=== PATIENT | female | born 1985 | race Caucasian/White ===

== ENCOUNTER 2019-02-06 21:13 | Observation (INO) | payer OTHER, SELFPAY ==
[2019-02-06] MEDS ORDERED: Ondansetron PF 4 MG/2 ML Vial ONE (21:30)
[2019-02-06] MEDS ORDERED: Morphine 4 MG/ML VIAL ONE ×2 (21:30→23:37)
[2019-02-06] MEDS ORDERED: Ketorolac Tromethamine 30 MG/ML VIAL ONE (21:30)
[2019-02-06 22:02] LABS: #Lymphocytes 0.8 thou/uL (1.20-3.40); #Monocytes 0.6 thou/uL (0.11-0.59); #Neutrophils 14.6 thou/uL (1.40-6.50); %Basophils 0.2 % (0.0-1.0); %Eosinophils 0.2 % (0.0-10.0); %Monocytes 3.5 % (0.0-10.0); %Neutrophils 91.1 % (42.0-75.0); Hemoglobin 14.2 g/dL (12.0-16.0); Mean Corpuscular HGB CONC 33.6 g/dL (32.0-36.0); Mean Corpuscular Hemoglobin 30.1 pg (27.0-31.0); Mean Corpuscular Volume 89.6 fL (78.0-98.0); Platelet Count 227 thou/uL (130-400); RBC Distribution Width 11.2 % (11.5-14.5); Red Blood Cell (RBC) Count 4.73 mill/uL (4.20-5.40)
[2019-02-06 22:11] LABS: BHCG - Serum Negative (NEGATIVE); Pregs Control Background? CLEAR/WHITE (CLR/WHITE); Pregs Control Bar Appear? YES (CONTROL BAR)
[2019-02-06 22:32] LABS: ALT (SGPT) 9 U/L (8-55); AST (SGOT) 13 U/L (5-34); Albumin 4.7 g/dL (3.5-5.0); Alkaline Phosphatase 83 U/L (40-110); Anion Gap 15 mmol/L (10-20); BUN (Urea Nitrogen) 13 mg/dL (7.0-18.7); Bilirubin, Total 0.6 mg/dL (0.2-1.2); Calc. Creatinine Clearance 0 mL/min (70-130); Calcium 9.9 mg/dL (7.8-10.44); Carbon Dioxide 24 mmol/L (22-29); Chloride 103 mmol/L (98-107); Estimated GFR-MDRD 62; Globulin 3.1 g/dL (2.4-3.5); Glucose 112 mg/dL (70-105); Lipase 17 U/L (8-78); Potassium 4.2 mmol/L (3.5-5.1); Protein, Total 7.8 g/dL (6.0-8.3); Sodium 138 mmol/L (136-145)
--- NOTE | 2019-02-06 23:22 | CT ---
CT Stone Protocol HISTORY: Bilateral flank pain intermittently x1 week. COMPARISON: None. FINDINGS: The lung bases are clear of any infiltrative process. Some linear atelectasis is seen. The liver, spleen, pancreas and gallbladder regions appear unremarkable given the limitations of a no ncontrast study. Right and left adrenal glands are normal in appearance right and left kidneys are normal in size a pu nctate lower pole left renal calculus is present. There is also left-sided hydronephrosis and hydroureter related to a proximal left ureteral calculus measuring 5 to 6 mm in size located at the L 3-4 level. There is no significant pelvic lymphadenopathy are size no significant periaortic or mesenteric adenopathy. CT of pelvis performed with contrast enhancement some trace free fluid is seen. There is no evidence of adenopathy or mass. The appendix appears unremarkable. IMPRESSION: 1. Approximately 5 mm proximal left ureteral calculus located at the L3-4 level associated with mild left-sided hydronephrosis and hydroureter. In addition there is a tiny punctate lower pole left renal calculus seen.
[2019-02-07 00:01] LABS: Bacteria/HPF 2+ HPF (None Seen); Bilirubin Negative (Negative); Blood, Urine 1+ (Negative); Calcium Oxalate Crystals Rare HPF (None Seen); Clarity Turbid (Clear); Glucose, Urine (Dipstick) Normal (Negative); Leukocyte 500 Leu/uL (Negative); Mucous/LPF 2+ LPF (<2+); Nitrite 2+ (Negative); Protein, Urine (Dipstick) 20 mg/dL (Neg-Trace); RBC/HPF 21-50 HPF (0-3); Urobilinogen Normal mg/dL (Less than 2); WBC/HPF Greater than 50 HPF (0-3)
[2019-02-07] MEDS ORDERED: cefTRIAXone\\ROCEPHIN 1 GM VIAL ONE (00:29)
[2019-02-07] MEDS ORDERED: Ondansetron PF 4 MG/2 ML Vial IVP PRN ×2 (01:18→01:56)
[2019-02-07] MEDS ORDERED: Ondansetron ODT 4 MG TAB PO PRN (01:18)
[2019-02-07] MEDS ORDERED: Acetaminophen 500 MG TAB ONE (01:41)
[2019-02-07] MEDS ORDERED: Morphine 4 MG/ML VIAL ONE (01:41)
[2019-02-07] MEDS: Sodium Chloride 0.9% 1,000 ML IV SCH ×3 (01:41→22:06)
[2019-02-07] MEDS ORDERED: Ondansetron ODT 4 MG TAB SL PRN (01:56)
[2019-02-07] MEDS ORDERED: Lactated Ringer's 1,000 ML IV SCH (01:56)
[2019-02-07] MEDS ORDERED: Morphine 2 MG/ML SYRINGE SLOW IVP PRN (01:57)
[2019-02-07] MEDS ORDERED: Ketorolac Tromethamine 30 MG/ML VIAL IVP PRN (01:58)
[2019-02-07 02:08] VITALS: BMI 21.1
--- NOTE | 2019-02-07 02:32 | HP ---
PRIMARY CARE PROVIDER: [facility]. CHIEF COMPLAINT: Left flank pain. HISTORY OF PRESENT ILLNESS: This is a 33-year-old female, who presented to [facility] Emergency Department complaining of left flank pain with nausea and abdominal discomfort over the last 48 hours. The patient admits to history of kidney stones x5 with previous presentation similar to the current admission. The patient admits to dark blood-tinged urine, general body aches, and decreased oral intake. The patient denies taking any outpatient antibiotics or other oemu-stj-vqirzul medications to relieve her symptoms. The patient denies any other chronic medical conditions or chronic medication use. The patient denied any recent travel history, recent procedures, instrumentation, or surgical procedures. In the emergency room, the patient underwent general evaluation including CT imaging of the abdomen and pelvis showing a proximal left ureteral calculus at 5 mm with associated mild left-sided hydronephrosis and hydroureter. The patient received IV Rocephin in addition to Toradol and morphine sulfate and intravenous normal saline. PAST MEDICAL HISTORY: Renal lithiasis with spontaneous passage of the stones. PAST SURGICAL HISTORY: Status post section x1. PAST PSYCHIATRIC HISTORY: Anxiety/depression. CURRENT MEDICATIONS: Reviewed and negative. ALLERGIES: NO KNOWN DRUG ALLERGIES. FAMILY HISTORY: No inheritable diseases per patient report. SOCIAL HISTORY: The patient resides in [place], [place]. Smokes up to half a pack of cigarettes daily. No alcohol or illicit drug use. Functional of all activities of daily living. REVIEW OF SYSTEMS: CONSTITUTIONAL: Negative for weight loss or gain, ability to conduct usual activities. SKIN: Negative for rash, itching. EYES: Negative for double vision, pain. ENT/MOUTH: Negative for nose bleeding, neck stiffness, pain, tenderness. CARDIOVASCULAR: Negative for palpitations, dyspnea on exertion, orthopnea. RESPIRATORY: Negative for shortness of breath, wheezing, cough, hemoptysis, fever or night sweats. GASTROINTESTINAL: Negative for poor appetite, abdominal pain, heartburn, nausea, vomiting, constipation, or diarrhea. GENITOURINARY: Negative for urgency, frequency, dysuria, nocturia. MUSCULOSKELETAL: Negative for pain, swelling. NEUROLOGIC/PSYCHIATRIC: Negative for anxiety, depression. ALLERGY/IMMUNOLOGIC: Negative for skin rash, bleeding tendency. Otherwise, negative except as stated per HPI. PHYSICAL EXAMINATION: VITAL SIGNS: On admission, blood pressure 113/57, pulse 89, respiratory rate 18, temperature 97.9 degrees Fahrenheit, and O2 saturation 93% on room air. GENERAL APPEARANCE: This is a 33-year-old female, ill appearing, responsive, in mild distress. HEENT: Pupils are equal, round, reactive to light and accommodation. Extraocular muscles are intact. No scleral icterus. No conjunctival injection. Nares patent. OP is clear. Oral mucosa is dry appearing. NECK: Supple. No cervical adenopathy. No thyromegaly. No carotid bruits. No JVD appreciated. Cervical spine with full active and passive range of motion. No meningeal signs noted. CHEST: Lungs are clear to auscultation bilaterally. CARDIOVASCULAR: S1, S2 with tachycardia. No murmur, rub, or gallop appreciated. ABDOMEN: Rounded, soft, nontender, and nondistended. Mild tenderness in the left flank region with positive CVA tenderness bilaterally, left greater than right. EXTREMITIES: Warm and dry with fair turgor. No clubbing, cyanosis, or asymmetric edema appreciated. Pulses palpable distally at the dorsalis pedis, posterior tibial, and popliteal arteries bilaterally. Capillary refill less than 2 seconds. NEUROLOGIC: Cranial nerves 2 through 12 are grossly intact. No focal or lateralizing signs appreciated. PERTINENT LABORATORY AND X-RAY FINDINGS: Basic metabolic profile within normal limits. LFTs within normal limits. Serum beta HCG negative. Lipase 17. CBC showed a white blood cell count of 16, hemoglobin 14, hematocrit 42, platelet count 227 with 91% neutrophils. Urinalysis showed a specific gravity of 1.023, positive blood, positive nitrite, positive leukocyte esterase with 21 to 50 rbc's per high-power field and greater than 50 to cxh-azfxdwnb-cd-count to count wbc's per high-power field. CT of the abdomen and pelvis dated 02/06/2019, showed a proximal left ureteral calculus, 5 mm in diameter with associated mild left-sided hydronephrosis and hydroureter. ASSESSMENT AND PLAN: 1. Left ureterolithiasis. The patient will be observed on the medical floor. We will continue intravenous normal saline at 125 mL/hour. Pain control with Toradol and morphine sulfate intravenously. Consult Urology Service in the a.m. for any further recommendations. Consider Flomax. Urine culture pending. 2. Urinary tract infection secondary to #1. Continue Rocephin 2 g IV q.24 hours. Urine culture pending. 3. Nausea and vomiting. Continue supportive management with IV fluids as outlined previously. Zofran 4 mg IV q.6 hours p.r.n. Clear liquids as tolerated. 4. Neutrophilic leukocytosis secondary to #1. Continue serial CBC monitoring. Anticipate improvement in the next 24 hours. 5. Prophylaxis. SCDs while in bed. Pepcid 20 mg p.o. b.i.d.. CODE STATUS: Full. Surrogate medical decision maker is the patient's mother. Job ID: [id number]
[2019-02-07] MEDS: Morphine 2 MG/ML SYRINGE SLOW IVP PRN ×3 (03:15→13:32)
[2019-02-07] MEDS: Ketorolac Tromethamine 30 MG/ML VIAL IVP SCH ×4 (05:27→23:42)
[2019-02-07 06:50] LABS: Band 7 % (5-11); Hemoglobin 11.1 g/dL (12.0-16.0); Lymphocytes 3 % (21-51); MDiff Complete? YES; Mean Corpuscular Hemoglobin 30.5 pg (27.0-31.0); Mean Corpuscular Volume 89.7 fL (78.0-98.0); Mean Platelet Volume 8.3 fL (7.4-10.4); Monocytes 1 % (0-10); Neutrophil 89 % (42-75); Platelet Count 157 thou/uL (130-400); Platelet Morphology Comment Appears Adequate; RBC Distribution Width 11.1 % (11.5-14.5); RBC Morphology Normal; Red Blood Cell (RBC) Count 3.63 mill/uL (4.20-5.40); White Blood Cell (WBC) Count 11.4 thou/uL (4.8-10.8)
[2019-02-07 06:54] LABS: Anion Gap 12 mmol/L (10-20); BUN (Urea Nitrogen) 12 mg/dL (7.0-18.7); Calc. Creatinine Clearance 88 mL/min (70-130); Carbon Dioxide 20 mmol/L (22-29); Chloride 110 mmol/L (98-107); Estimated GFR-MDRD 85; Glucose 110 mg/dL (70-105); Potassium 3.5 mmol/L (3.5-5.1); Sodium 138 mmol/L (136-145)
[2019-02-07] MEDS: cefTRIAXone\\ROCEPHIN 2 GM in Sodium Chloride 0.9% 100 ML IVPB SCH (08:33)
[2019-02-07] MEDS: Famotidine 20 MG TAB PO SCH ×2 (08:33→20:53)
[2019-02-07] MEDS: Acetaminophen 500 MG TAB PO PRN ×2 (11:41→20:54)
[2019-02-07] MEDS ORDERED: ePHEDrine/0.9% NaCl/PF SYRINGE 50 mg/10 ml ONE (12:54)
[2019-02-07] MEDS ORDERED: Lidocaine 1% PF 5 ML VIAL ONE (12:54)
[2019-02-07] MEDS ORDERED: Dexamethasone 20 MG/5 ML VIAL ONE (12:54)
[2019-02-07] MEDS ORDERED: PROPOFOL 200 MG/20 ML VIAL ONE (12:54)
[2019-02-07] MEDS ORDERED: Ondansetron PF 4 MG/2 ML Vial ONE (12:54)
[2019-02-07] MEDS ORDERED: PHENYLEPHRINE-NS 100 MCG/ML 10 ML SYRINGE ONE (12:54)
[2019-02-07] MEDS ORDERED: Ketorolac Tromethamine 30 MG/ML VIAL ONE (12:54)
--- NOTE | 2019-02-07 13:26 | RAD ---
XR Abdomen 1 View/KUB History: Kidney stone Comparison: CT examination prior day Findings: Similar location of the left ureteral calculus between the L3 and L4 transverse processes. Punctate lower left renal collecting system calculus is not well seen. No acute osseous abnormality. Impression: Unchanged left ureteral calculus.
--- NOTE | 2019-02-07 13:58 | CON ---
DATE OF CONSULTATION: 02/07/2019 REASON FOR CONSULTATION: 1. Left ureteral calculus. 2. Apparent urosepsis meaning sepsis. HISTORY OF PRESENT ILLNESS: Ms. 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 She has never had a febrile episode like she has experienced over the last 24 hours. The patient presents with high fever and left-sided flank pain. She presented via the Emergency Department, underwent CT scanning of the abdomen and pelvis, which demonstrated the presence of a 5.5 mm calculus in the left mid ureter overlying the psoas muscle. The patient has continued to have signs and symptoms of sepsis with elevated white blood count, tachycardia, and fever to 101.5. The patient is uncomfortable, who has had nausea and vomiting as well. ALLERGIES: NO KNOWN DRUG ALLERGIES. MEDICATIONS: Outpatient medication list, none. GYNECOLOGIC HISTORY: The patient is 1, para 1, by . SOCIAL HISTORY: The patient is a current half pack per day cigarette smoker. She does drink alcohol, usually of two beers on a weekend night. She is from her . Has one child, who ordinarily is at home, but is with her estranged at the present time. The patient resides with her boyfriend. She works as a [employer] manager. PAST MEDICAL HISTORY: Kidney stones with five previous events, none of which required surgical intervention, and all which passed without requirement for intervention. PAST SURGICAL HISTORY: The only previous surgery was a section for the delivery of her only child. FAMILY MEDICAL HISTORY: Noncontributory. REVIEW OF SYSTEMS: CONSTITUTIONAL: The patient reports constitutional symptoms of fever and chills. PULMONARY: Negative. CARDIAC: Notable for rapid heart rate. GASTROINTESTINAL: Positive for nausea and vomiting. GENITOURINARY: The patient reports left-sided flank pain symptoms consistent with passage of kidney stone. This is typical for her symptomatology. MUSCULOSKELETAL: Negative. SKIN AND INTEGUMENTARY SYSTEM: Negative. HEMATOLOGIC: Negative history. Review of systems, otherwise negative x12 systems. PHYSICAL EXAMINATION: VITAL SIGNS: Temperature is 101.5 degrees F. Pulse rate is 111, respiratory rate is 16, and blood pressure is 105/56. HEAD, EYES, EARS, NOSE, AND THROAT: Extraocular movements are intact. Sclerae anicteric. Oropharynx is clear. NECK: Supple. LUNGS: Clear to auscultation bilaterally. CARDIAC: Regular rate and rhythm without murmur, rub, or gallop. ABDOMEN: Soft and nontender anteriorly. The patient has undergone a previous section. BACK: There is moderate left-sided costovertebral angle tenderness. She has no complementary right-sided costovertebral angle tenderness. PELVIC: Deferred to the operative suite. EXTREMITIES: Appear within normal limits. There is no clubbing, cyanosis, or edema. NEUROLOGIC: The patient appears to be able to move all 4 extremities against gravity. Gait was not assessed. The patient was examined in her hospital bed. LABORATORY STUDIES: This morning, white count is down to 11.4 from a very elevated 16,000 yesterday with a left shift of 91.1%. Left shift is improved to 89% this morning. Serum chemistry showed the patient's creatinine was 1.04 yesterday, now down to 0.79. Blood urea nitrogen 13 yesterday, down to 12 today. Glucose remains borderline elevated at 110 on IV fluid. Urinalysis showed 500 units of leukocyte esterase, 21 to 50 red cells per high-power field and greater than 50 white cells per high-power field. Microscopic analysis showed squamous epithelial cells 4 to 6, calcium oxalate crystals seen rarely. Urine bacteria 2+ and urine mucus at 2+. Urine gravity was 1.023 consistent with dehydration. ASSESSMENT AND PLAN: 1. Left-sided mid ureteral calculus with septic presentation. The patient has been on IV antibiotics and resuscitation fluids and appears to be improving somewhat, though she remains febrile with an elevated white count. The patient is receiving appropriate resuscitation at the present time. Discussed with the patient risks and benefits. At the present time, the stone would appear to probably take several weeks to pass on its own. I am recommending a KUB imaging studies be obtained for following the stone longer-term. In addition, I recommend the patient remain on antibiotic coverage and IV fluid for now. I think she probably should proceed to the operating room for cystoscopy and left-sided stent placement. The stone would ordinarily be of a size that could pass on its own. I think if the patient was stented, she would be suitable for discharge home as soon as her fever clears and her microorganism antibiotic sensitivities known. 2. Recurrent kidney stone. Formally, the patient needs outpatient evaluation for a kidney stone risk factors, which can be performed in my office. Over 70 minutes of initial consultation care and coordination of care time was spent in evaluation and assessment of this patient today. Job ID: [id number]
[2019-02-07] MEDS ORDERED: Fentanyl 100 MCG/2 ML VIAL ONE (15:55)
[2019-02-07] MEDS ORDERED: Iothalamate Meglumine 60% 50 ML VIAL FS ONE (16:05)
[2019-02-07] MEDS ORDERED: Ondansetron HCl/PF 4 MG/2 ML Vial IVP PRN (16:06)
[2019-02-07] MEDS ORDERED: Promethazine HCl 25 MG/ML VIAL IM PRN (16:06)
[2019-02-07] MEDS ORDERED: Promethazine HCl 25 MG/ML VIAL SLOW IVP PRN (16:06)
[2019-02-07] MEDS ORDERED: B & O ONE (16:45)
--- NOTE | 2019-02-07 17:04 | RAD ---
RETROGRADE PYELOGRAM: HISTORY: Ureteral stone. FINDINGS: Two images are presented for interpretation, showing placement of a left ureteral stent. IMPRESSION: Placement of left ureteral stent. The collecting system is nondilated. POS: GERALDINE
[2019-02-07] MEDS: Trospium 20 MG TAB PO SCH (20:53)
[2019-02-07] MEDS: Phenazopyridine HCl 97.5 MG TABLET PO SCH (20:54)
[2019-02-07] MEDS: HYDROcodone/Acetaminophen 5/325 mg Tablet PO PRN (22:05)
[2019-02-08] MEDS: Sodium Chloride 0.9% 1,000 ML IV SCH ×2 (01:14→07:51)
--- NOTE | 2019-02-08 01:58 | OP ---
DATE OF PROCEDURE: 02/07/2019 PREOPERATIVE DIAGNOSES: 1. Left ureteral calculus, N20.1. 2. Sepsis. POSTOPERATIVE DIAGNOSES: 1. Left ureteral calculus, N20.1. 2. Sepsis. OPERATIVE PROCEDURE: 1. Cystourethroscopy with left ureteral stent placement, 32287. 2. Cystourethroscopy with left-sided retrograde pyelography, 37554. STITCHER AROUND SURGEON: None. 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 The patient developed acute onset left-sided flank pain with associated nausea, vomiting, and fever, presented to the emergency department today where she was admitted by Dr. Duenas, who placed her on IV antibiotics. I evaluated the patient on the floor and based on her presentation and followup KUB imaging study demonstrating a radiopaque calculus, we decided to proceed to the operating room for cystoscopy and stent placement today. The patient had received appropriate antibiotic coverage and fluid resuscitation prior to proceeding to the operating room. DESCRIPTION OF PROCEDURE: The patient was appropriately identified and informed written consent was obtained in the preoperative holding area. The patient and I discussed risks and benefits of the procedure. The patient agreed to proceed. Signed informed consent. The patient was then taken to the operative suite, reidentified, and placed in the supine position on a cysto-fluorographic table. General anesthesia was established. Following appropriate time-out, the patient was repositioned in supine lithotomy position, prepped and draped in usual sterile fashion. Cystoscopic evaluation was performed using a 22-[place] cystoscope sheath introduced using an obturator. The patient's bladder was free of any evidence of stone. There was no evidence of inflammation around the left ureteric orifice to suggest any degree of stone passage. There was no efflux observed from left ureteric orifice. Rincon-endoscopic evaluation of the patient's bladder found no evidence of stone, tumor, or other lesion. There was a small amount of purulent debris observed in the patient's bladder suggesting some degree of passage around the calculus. We accessed the patient's left ureter using a 0.035 angled Glidewire and a 5-[place] Pollack stent. This was advanced above the level of the calculus and fluid aspirated from the patient's renal pelvis. This had a minimally turbid appearance to it suggestive of possible active infection or pyuria. This was sent for culture. I then performed retrograde pyelography to identify the patient's collecting system. Then, we readvanced the Glidewire in the patient's renal pelvis. Then, advanced a 4.5-[place]ese x 28 cm double-J ACMI ureteral stent into position. Obtaining good coil in the patient's upper collecting system. We removed the string. This stent obtained a good coil in the patient's bladder. We drained the patient's bladder and then placed a belladonna and opioid 16A 60 mg suppository per rectum. The patient tolerated the procedure well. She was returned to the full supine lithotomy position. LMA airway was then removed. The patient was then transferred to the [facility], breathing on her own and subsequently transported the postoperative recovery area in good condition. Estimated blood loss 0 mL. Specimens, urine from the left UPJ and renal pelvis on the left for culture. No stones were recovered. The patient has been febrile today and has the appearance of sepsis and there was purulent material observed in the patient's bladder, so we did not perform ureteroscopy. The patient tolerated the procedure well and vital signs were stable postoperatively. COMPLICATIONS: None. Job ID: [id number]
[2019-02-08] MEDS: Ketorolac Tromethamine 30 MG/ML VIAL IVP SCH ×2 (05:01→10:54)
[2019-02-08 05:16] LABS: Anion Gap 11 mmol/L (10-20); BUN (Urea Nitrogen) 11 mg/dL (7.0-18.7); Calc. Creatinine Clearance 93 mL/min (70-130); Carbon Dioxide 20 mmol/L (22-29); Chloride 111 mmol/L (98-107); Estimated GFR-MDRD 90; Glucose 142 mg/dL (70-105); Potassium 3.7 mmol/L (3.5-5.1); Sodium 138 mmol/L (136-145)
[2019-02-08 05:22] LABS: #Lymphocytes 0.7 thou/uL (1.20-3.40); #Monocytes 0.2 thou/uL (0.11-0.59); #Neutrophils 6.8 thou/uL (1.40-6.50); %Basophils 0.1 % (0.0-1.0); %Eosinophils 0.2 % (0.0-10.0); %Lymphocytes 8.8 % (21.0-51.0); %Monocytes 2.9 % (0.0-10.0); %Neutrophils 88.1 % (42.0-75.0); Hemoglobin 10.6 g/dL (12.0-16.0); Mean Corpuscular HGB CONC 33.4 g/dL (32.0-36.0); Mean Corpuscular Hemoglobin 30.5 pg (27.0-31.0); Mean Corpuscular Volume 91.1 fL (78.0-98.0); Mean Platelet Volume 8.9 fL (7.4-10.4); Platelet Count 111 thou/uL (130-400); Platelet Morphology Comment Appears Decreased; RBC Distribution Width 11.2 % (11.5-14.5); Red Blood Cell (RBC) Count 3.47 mill/uL (4.20-5.40); White Blood Cell (WBC) Count 7.7 thou/uL (4.8-10.8)
[2019-02-08] MEDS: Phenazopyridine HCl 97.5 MG TABLET PO SCH (08:29)
[2019-02-08] MEDS: Trospium 20 MG TAB PO SCH (08:29)
[2019-02-08] MEDS: Famotidine 20 MG TAB PO SCH (08:29)
[2019-02-08] MEDS: HYDROcodone/Acetaminophen 5/325 mg Tablet PO PRN (08:30)
[2019-02-08] MEDS: cefTRIAXone\\ROCEPHIN 2 GM in Sodium Chloride 0.9% 100 ML IVPB SCH (09:38)
[2019-02-08 11:58] VITALS: BP 101/61; TEMP 98.3
--- NOTE | 2019-02-08 21:20 | CON ---
DATE OF CONSULTATION: INITIAL REASON FOR CONSULTATION AND EVALUATION: 1. Left ureteral obstructing calculus. 2. SIRS. BRIEF HISTORY: Ms. Alley Todd is a pleasant 33-year-old white female who presented with signs of sepsis and CT scanning demonstrating a left ureteral calculus, which was obstructing relatively large. The patient was managed expectantly and underwent appropriate resuscitation as well as antibiotic administration, was ultimately taken to the operative suite on 02/07/2019 for cystourethroscopy, retrograde pyelography and left-sided stent placement. The patient had retrograde pyelogram study demonstrating obstructing calculus in the left mid ureter overlying the psoas muscle. Due to this, the patient received a stent. She has done well overnight and has had stable vital signs and stent placement. She is doing well. Reports her pain is essentially relieved at this point. She desires discharge home. PHYSICAL EXAMINATION: VITAL SIGNS: Temperature 98.3, pulse 73, respirations 16, room air saturations 99%, blood pressure is 101/61, up from 96/57 yesterday. The patient responded appropriately to Rocephin, antibiotics, and will be going home on oral Omnicef. HEAD, EYES, EARS, NOSE, AND THROAT: Extraocular movements are intact. Sclerae anicteric. Oropharynx is clear. NECK: Supple. LUNGS: Clear bilaterally. CARDIAC: Regular rate and rhythm. ABDOMEN: Soft and nontender. BACK: There is no costovertebral angle tenderness on either side. PELVIS: Pelvic examination was not repeated in the operative suite. There were no physical abnormalities noted. EXTREMITIES: Appear within normal limits. The patient has neurologic ability to move all 4 extremities against gravity without difficulty. LABORATORY STUDIES: The patient's white count on ER evaluation in the late night hours of 02/06/2019 was 16,000, this is now down to 7,700 today. The patient's previously noted left shift at 91.1% neutrophils has improved to 88.1% neutrophils progressively downward since admission. Hemoglobin is 10.6 with hematocrit of 31.6. Serum chemistry showed the patient's creatinine now at 0.75 down from 1.0 at admission, blood urea nitrogen down to 11 from 13 at hospital admission. Serum glucose has continued to run relatively high, but this was in the presence of IV fluid. ASSESSMENT AND PLAN: 1. Left mid ureteral calculus with obstruction, now stented. The patient will need disposition of the stone in the future and will present to my office on 02/17/2019 for preoperative evaluation. We anticipate bringing her back for left ureteroscopy here at [facility] probably within a week of that visit. DISCHARGE INSTRUCTIONS: The patient will be discharged on the following medications: 1. Lopeno 5/325 one to two p.o. q.4-6 hours p.r.n. for pain, total of 20 prescribed. 2. Omnicef 300 mg p.o. b.i.d. 3. VESIcare 10 mg tablets one 1/2 to 1 tablet p.o. daily or every other day. 4. AZO zlew-klh-nhhxecn, phenazopyridine 95 mg 1 p.o. b.i.d. 5. The patient does have an indwelling stent and was advised that she needs return for removal of the stent. She likely will get a new stent with her next procedures since it will be a ureteroscopy. The patient and I did discuss the importance of returning for removal of indwelling hardware, unless encrustation and further damage to her kidneys occur. Over 35 minutes of consultation, assessment, coordination of care time was spent in evaluation and treatment of this patient today. Job ID: [id number]
--- NOTE | 2019-02-09 03:28 | DIS ---
DATE OF ADMISSION: 02/07/2019 DATE OF DISCHARGE: 02/08/2019 REASON FOR HOSPITALIZATION: Flank pain. SIGNIFICANT FINDINGS: The patient found to have nephrolithiasis and acute urinary tract infection. PROCEDURES PERFORMED AND TREATMENTS RENDERED: The patient was admitted to medical unit with telemetry, add IV fluid resuscitation, IV antibiotics, and underwent operation on 02/07/[address] Keny Aiken, who performed cystourethroscopy with left ureteral stent placement-please see full operative report for details. The patient tolerated the procedure well without intraoperative complications. The patient is seen and evaluated by Urology on 02/08/2019, and was recommended safe for discharge with close followup in the outpatient setting for stent removal. CONDITION ON DISCHARGE: Stable. SPECIFIC INSTRUCTIONS FOR THE PATIENT/FAMILY: 1. The patient is recommended to take a full course of oral antibiotics for resolution of urinary tract infection. 2. The patient is recommended to follow up with Urology and have stent removed in the upcoming weeks. 3. The patient is recommended to stay well hydrated to avoid further problems of nephrolithiasis. 4. The patient is recommended to return to acute care hospital immediately if signs or symptoms return, worsen, or any other new symptoms occur. DISCHARGE MEDICATIONS: 1. Omnicef 300 mg one tablet p.o. b.i.d. 2. [place] 5 mg one tablet p.o. q.4 hours p.r.n. pain. HOSPITAL COURSE: Ms. Todd is a very pleasant 33-year-old female, who presented to [facility] on 02/06/2019, with flank pain. The patient was identified to have a 5 mm proximal left ureteral calculus located at the L3-L4 level, associated with mild left-sided hydronephrosis and hydroureter. The patient was seen and evaluated by Urology, who performed cystoscopy on 02/07/2019-please see full operative report for details. The patient tolerated the procedure well without intraoperative complications. The patient was admitted to medical unit with telemetry and started on appropriate antibiotic therapy with good resolution of symptoms. On admission, patient's WBC count of 16,000 normalized to 7.7 on day of discharge, 02/08/2019. The patient is afebrile throughout her hospitalization. The patient is tolerating a regular diet on 02/08/2019 and was recommended safe for discharge by Urology with close followup in the outpatient setting. The patient recommended to complete a full course of oral antibiotics. The patient is recommended to have adequate oral intake of fluids and avoid dehydration. The patient recommended pain control. The patient will follow up with Urology in the upcoming weeks for stent removal. The patient is recommended to return to acute care hospital immediately if signs or symptoms return, worsen, or any other new symptoms occur. Greater than 33 minutes spent coordinating care and discharge process for this patient. Job ID: [id number]
== END 2019-02-08 15:12 | disposition home or self-care (01) ==
LOC: ERS 21:13 → 2SW 02-07 01:43
PROVIDERS: ADMIT Family Medicine; ATTEND Family Medicine
PROC: 0T778DZ Dilation of Left Ureter with Intraluminal Device, Via Natural or Artificial Opening Endoscopic (ICD-10-PCS; principal; 2019-02-08)
DX: N13.2 Hydronephrosis with renal and ureteral calculous obstruction (principal); A41.9 Sepsis, unspecified organism; N39.0 Urinary tract infection, site not specified; D72.829 Elevated white blood cell count, unspecified; F17.210 Nicotine dependence, cigarettes, uncomplicated
CPT/HCPCS: 36415; 74018; 74176; 74420; 80048; 80053; 81003; 81015; 83690; 84703; 85007; 85025; 85027; 87070; 87077; 87186; 87205; 96361; 96365; 96366; 96375; 96376; C1758; C1769; G0378; J0696; J1100; J1885; J2001; J2270; J2405; J2704; J3010; J3490; Q0162

== ENCOUNTER 2019-03-01 10:39 | Day surgery (SDC) | payer SELFPAY ==
[2019-02-26 16:37] VITALS: BMI 21.2
[~2019-03-01 10:39] MED LIST: Dexamethasone 20 MG/5 ML VIAL ONE; Glycopyrrolate 0.2 MG/ML 5 ML SYRINGE ONE; Lidocaine 1% PF 5 ML VIAL ONE; Ondansetron PF 4 MG/2 ML Vial ONE; PROPOFOL 200 MG/20 ML VIAL ONE; Rocuronium Bromide 10 MG/ML (10ML VIAL) ONE
[2019-03-01] MEDS ORDERED: Promethazine HCl 25 MG/ML VIAL IM PRN (10:59)
[2019-03-01] MEDS ORDERED: Ondansetron HCl/PF 4 MG/2 ML Vial IVP PRN (10:59)
[2019-03-01] MEDS ORDERED: Promethazine HCl 25 MG/ML VIAL SLOW IVP PRN (10:59)
[2019-03-01] MEDS ORDERED: Levofloxacin 500 mg/D5W 100 ml Premix Bag ONE (12:44)
[2019-03-01] MEDS ORDERED: B & O ONE (13:28)
[2019-03-01] MEDS ORDERED: Iothalamate Meglumine 60% 50 ML VIAL FS ONE (13:28)
[2019-03-01] MEDS ORDERED: Fentanyl 100 MCG/2 ML VIAL ONE (13:29)
[2019-03-01] MEDS ORDERED: Lidocaine 2% Jelly 5 ML TUBE ONE (13:29)
[2019-03-01] MEDS ORDERED: Midazolam HCl 2 mg/2 ml Vial ONE (13:29)
--- NOTE | 2019-03-01 15:57 | OP ---
DATE OF PROCEDURE: 03/01/2019 PREOPERATIVE DIAGNOSES: 1. Left ureteral calculus, N20.1. 2. Proximal migration of calculus into kidney N20.0. POSTOPERATIVE DIAGNOSES: 1. Left ureteral calculus, N20.1. 2. Proximal migration of calculus into kidney N20.0. PROCEDURES PERFORMED: 1. Cystourethroscopy with left ureteroscopy and laser lithotripsy, 44116. 2. Cystourethroscopy with left-sided stent placement, 35205. BATCH ATTENDANT SURGEON: None. ESTIMATED BLOOD LOSS: 0 mL. DRAINS AND TUBES REMOVED: A 4.5-Chinese x 28 cm double-J ureteral stent removed. IMPLANTS: A 4.5-Chinese x 28 cm double-J ureteral stent placed in the left ureter at close of procedure with string removed. COMPLICATIONS: None apparent. BRIEF HISTORY/INDICATION FOR PROCEDURE: Ms. 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 The patient did have a stent placed during that hospitalization. She opted to proceed with treatment of her left ureteral calculus as no progression was observed on KUB imaging. The patient presented today for that treatment. DESCRIPTION OF PROCEDURE: The patient was appropriately identified in the preoperative holding area. Informed written consent was verified. The patient received prophylactic intravenous antibiotics, was transported to the operative suite, placed in the supine position. General anesthesia was established using LMA airway. The patient was prepped and draped in the usual sterile fashion after being placed in the supine lithotomy position. Cystoscopic evaluation was performed using a 23-Chinese cystoscope sheath and a 30 degree optic. Using obturators when appropriate. The patient was then evaluated. An indwelling stent was identified in the left ureter. This was grasped and brought back to the left ureteric opening. A 0.035 angled Glidewire was passed via the Glidewire into the patient's kidney. Photographic evaluation did not demonstrate a ureteral calculus. We performed semi-rigid ureteroscopy up to the level of the ureteropelvic junction on the left side. No stone was encountered. However, on fluorographic evaluation of the renal pelvis, we noticed densities, which were radiopaque. No retrograde pyelography was performed in this patient. Ureteroscopy using flexible instrumentation was then performed. Applied ureteral access sheath in the patient's left collecting system and then, we removed the obturator from that, performed ureteroscopy using a flexible Mapbar ureteroscope. Identified the calyx in the patient's renal pelvis. We utilized a Zero tip Nitinol basket and manipulated this back into the patient's ureter, where lithotripsy was performed using a holmium laser with settings of 0.2 joules and 50 hertz. We fragmented the stone into multiple smaller stone fragments. Stone was radiopaque and dark in color or dark brown shade through the scope indicating probable calcium oxalate components. The patient's ureter was intact. We then placed a 4.5-Chinese x 28 cm double-J ureteral stent in the patient's left collecting system using a cystoscope. No retrograde pyelography was performed on this patient. All the patient's calyces were individually evaluated using the flexible ureteroscope. The patient's bladder was drained and she was returned to the full supine position after placement of a 16A 60 mg belladonna and opioid suppository per rectum. She tolerated the procedure well. The endotracheal airway was removed in the operative suite and she was transported to the postoperative area, breathing on her own. Job ID: [id number]
--- NOTE | 2019-03-01 16:15 | RAD ---
RETROGRADE PYELOGRAM: HISTORY: Stent placement. FINDINGS: A series of 18 images show wire and stent placement on the left. IMPRESSION: Left ureteral stent placement. POS: GERALDINE
--- NOTE | 2019-03-02 01:41 | DIS ---
DATE OF ADMISSION: 03/01/2019 DATE OF DISCHARGE: 03/01/2019 DATE OF PROCEDURE: 03/01/2019 ADMISSION DIAGNOSES: 1. Left ureteral calculus, N20.1. 2. History of systemic inflammatory response syndrome with unknown organism. DISCHARGE DIAGNOSES: 1. History of left ureteral calculus, N20.1 with proximal migration, N20.0. 2. History of systemic inflammatory response syndrome with unknown organism. PROCEDURES PERFORMED: 1. Left ureteroscopy and laser lithotripsy, 93109. 2. Left-sided stent placement with cystourethroscopy, 80028. SURGEON: Keny Aiken MD. BRIEF HISTORY AND INDICATION FOR HOSPITALIZATION: Ms. Hager is a very pleasant 33-year-old white female, [employer] security manager, who presented to clinic for nephrolithiasis of the left ureter. She saw us in office on 02/18/2019 after previous evaluation here at the [facility] on 02/07/2019 and 02/08/2019. She did undergo stenting of her left ureter due to obstructing 8 mm calculus in left ureter at that time. Patient had a SIRS type presentation which completely resolved with placement of the stent. She received IV antibiotics during the hospitalization and her organism is unknown due to culturing difficulties. Patient has done well and been afebrile as an outpatient with a stent in place and opted to proceed with treatment of her stone today. Please see the operative note for specific details relegated to the patient's left ureteroscopy and stent placement. DISCHARGE INSTRUCTIONS: The patient will follow up at [facility] on or about 03/11/2019 at 1530 in the afternoon for cystoscopy and stent removal. No imaging studies are required before removal of stent. DISCHARGE MEDICATIONS: Patient has existing prescriptions for; 1. Hydrocodone 5/325 one q.4 h. p.r.n. as needed for pain. 2. Cefdinir 300 mg every 12 hours. FOLLOWUP: Follow up at [facility] for further evaluation and assessment as noted above. Job ID: [id number]
== END 2019-03-01 16:40 | disposition home or self-care (01) ==
LOC: SDC 10:39
PROVIDERS: ATTEND Urology
PROC: 0TF78ZZ Fragmentation in Left Ureter, Via Natural or Artificial Opening Endoscopic (ICD-10-PCS; principal; 2019-03-01)
PROC: 0T778DZ Dilation of Left Ureter with Intraluminal Device, Via Natural or Artificial Opening Endoscopic (ICD-10-PCS; principal; 2019-03-01)
DX: N20.2 Calculus of kidney with calculus of ureter (principal); N39.0 Urinary tract infection, site not specified
CPT/HCPCS: 74420; 82365; 88300; C1769; J1100; J1956; J2001; J2250; J2405; J2704; J3010